=== PATIENT | male | born 1965 ===

== ENCOUNTER → 2023-08-23 08:00 | Outpatient (CLI) | payer OTHER ==
[~2023-08-23] VITALS: Ht 157.5 cm; Wt 79.4 kg
[~2023-08-23 08:00] MED LIST: BENICAR40 MG PO; HYDROCHLOROTHIA25 MG PO; LIPITOR20 MG PO; MULTIPLE VITAM1 EAC2 PO
== END | disposition home or self-care (01) ==
LOC: EKG 08:00 → ADM 11:30 → EDSTATUS 08-30 11:30 → CIR.AMB 08-30 11:30
PROVIDERS: ATTEND Colon & Rectal Surgery
DX: K64.2 Third degree hemorrhoids (principal); K64.4 Residual hemorrhoidal skin tags